=== PATIENT | female | born 1945 | race African-American/Black ===

== ENCOUNTER 2020-05-27 09:02 | Day surgery (SDC) | payer MEDICARE, MEDICAID ==
[~2020-05-27] VITALS: Ht 165.1 cm; Wt 69.7 kg
[2020-05-27] VITALS (11 sets, daily range): BP systolic 109–137; BP diastolic 44–68; PULSE 60–98; TEMP 98.3–98.5
[2020-05-27 09:43] LABS: MEAN CELL VOLUME 84 fl (80.0-100.0); MEAN CORPUSCULAR HGB CONC 30 g/dl (33.0-37.0); MEAN PLATELET VOLUME 9.6 fl (7.4-10.4); PLATELET COUNT 455 K/mm3 (130-400); RED BLOOD COUNT 3.71 M/mm3 (4.10-5.30); REDCELL DISTRIBUTION WIDTH-CV 16.2 % (11.5-14.5)
[2020-05-27 09:45] LABS: HEMATOCRIT 31.3 % (37.0-47.0); HEMOGLOBIN 9.4 g/dl (12.5-16.0); MEAN CORPUSCULAR HEMOGLOBIN 25 pg (27.0-31.0)
[2020-05-27 09:50] LABS: PROTHROMBIN TIME 11.2 SECONDS (9.7-12.8)
[2020-05-27 09:51] LABS: CALCIUM 9.4 mg/dL (8.4-10.2); CREATININE, serum 1.49 (0.52-1.25); POTASSIUM 3.7 mmol/L (3.4-5.0)
[2020-05-27] MEDS ORDERED: NORVASC 5MG5 MG/TAB PO (09:53)
[2020-05-27] MEDS ORDERED: ARIMIDEX1 MG PO (09:54)
[2020-05-27] MEDS ORDERED: ASPIRIN 81M81 MG/TA2 PO (09:54)
[2020-05-27] MEDS ORDERED: GLUCOTROL 5M5 MG/TAB PO (09:55)
[2020-05-27] MEDS ORDERED: LASIX 20MG TABL20 MG PO (09:55)
[2020-05-27] MEDS ORDERED: CENTRUM SILVER1 CTB PO (09:55)
[2020-05-27] MEDS ORDERED: LIPITOR20 MG PO (09:56)
[2020-05-27] MEDS ORDERED: GLUCOPHAGE1000 MG PO (09:56)
[2020-05-27] MEDS ORDERED: PLAVIX 75MG TAB75 MG PO (09:57)
[2020-05-27] MEDS ORDERED: ULTRAM 50MG TAB50 MG PO (09:57)
[2020-05-27] MEDS ORDERED: VICTOZA6 MG/ML SQ (09:57)
[2020-05-27] MEDS ORDERED: PRINZIDE 12.5 M1 TAB PO (09:58)
[2020-05-27] MEDS ORDERED: LANOXIN 0.120.125 MG PO (09:58)
[2020-05-27] MEDS ORDERED: NATURAL MAGNES200 MG PO (09:59)
[2020-05-27] MEDS ORDERED: REGLAN 5MG T5 MG/TAB PO (10:00)
[2020-05-27] MEDS ORDERED: GAS RELIEF 8080 MG PO (10:00)
[2020-05-27] MEDS ORDERED: LOPRESSOR 225 MG/TAB PO (10:01)
[2020-05-27] MEDS ORDERED: ROXICODONE 55 MG/TAB PO (10:01)
--- NOTE | 2020-05-27 11:20 | NUR ---
SEE MERGE DOCUMENTATION FOR MEDICATION ADMINISTRATION TIMES AND INTRA/POST PROCEDURE SEDATION ASSESSMENTS. PLAN FOR LEFT FEMORAL APPROACH PER PT REQUEST; AGREES WITH THIS.
[2020-05-27] MEDS ORDERED: LIPITOR 40MG TA40 MG PO (12:14)
--- NOTE | 2020-05-27 12:42 | NUR ---
Report received from Can RN in [employer]. Pt resting in bed with dressing in place with 40 ccs of air. Area is soft with no hematoma. PT has required multiple reminders already to keep head flat. Phone given to patient to update family. Call light in reach. Ice chips per request. Ordered lunch per request. Will continue to monitor.
--- NOTE | 2020-05-27 16:48 | NUR ---
Slowly removed air to dressing on L groin, pt tolerated well, no signs of bleeding or hematoma. Assissted pt up to bathroom, and changed dressing to gauze and tegaderm. Denies needs, denies pain, denies any CMS comprimise. Will do discharge shortly.
--- NOTE | 2020-05-27 17:23 | NUR ---
Discharge teaching completed at this time. Pt received f/u appointment, medication changes, and reviewed restrictions with bathing, and lifting from cath site. INT dc'd, tip intact. Pt left wtih all belongings, escorted out by myself via w/c, son to drive home, criteria met.
== END 2020-05-27 17:25 | disposition home or self-care (01) ==
LOC: COL.CAR
PROVIDERS: Internal Medicine Cardiovascular Disease
DX: I25.118 Atherosclerotic heart disease of native coronary artery with other forms of angina pectoris (principal); I10 Essential (primary) hypertension; I73.9 Peripheral vascular disease, unspecified; E78.5 Hyperlipidemia, unspecified; F17.210 Nicotine dependence, cigarettes, uncomplicated; E66.9 Obesity, unspecified; E11.51 Type 2 diabetes mellitus with diabetic peripheral angiopathy without gangrene; E03.9 Hypothyroidism, unspecified; K21.9 Gastro-esophageal reflux disease without esophagitis; F32.9 Major depressive disorder, single episode, unspecified; M79.604 Pain in right leg; Z79.82 Long term (current) use of aspirin; Z79.899 Other long term (current) drug therapy; Z79.02 Long term (current) use of antithrombotics/antiplatelets; Z86.79 Personal history of other diseases of the circulatory system; Z85.831 Personal history of malignant neoplasm of soft tissue; Z95.820 Peripheral vascular angioplasty status with implants and grafts; Z68.25 Body mass index [BMI] 25.0-25.9, adult; Z88.1 Allergy status to other antibiotic agents; Z20.828 Contact with and (suspected) exposure to other viral communicable diseases; Z79.84 Long term (current) use of oral hypoglycemic drugs
CPT/HCPCS: J1644; J2250; J3010; J7050; Q9967

== ENCOUNTER → 2020-06-01 | Outpatient (CLI) | payer MEDICARE, MEDICAID ==
[~2020-06-01] MED LIST: ARIMIDEX1 MG PO; ASPIRIN 81M81 MG/TA2 PO; CENTRUM SILVER1 CTB PO; GAS RELIEF 8080 MG PO; GLUCOPHAGE1000 MG PO; GLUCOTROL 5M5 MG/TAB PO; LANOXIN 0.120.125 MG PO; LASIX 20MG TABL20 MG PO; LIPITOR 40MG TA40 MG PO; LIPITOR20 MG PO; LOPRESSOR 225 MG/TAB PO; NATURAL MAGNES200 MG PO; NORVASC 5MG5 MG/TAB PO; PLAVIX 75MG TAB75 MG PO; PRINZIDE 12.5 M1 TAB PO; REGLAN 5MG T5 MG/TAB PO; ROXICODONE 55 MG/TAB PO; ULTRAM 50MG TAB50 MG PO; VICTOZA6 MG/ML SQ
[2020-06-01 10:21] LABS: HEMATOCRIT 27.3 % (37.0-47.0); HEMOGLOBIN 8.1 g/dl (12.5-16.0); MEAN CELL VOLUME 85 fl (80.0-100.0); MEAN CORPUSCULAR HEMOGLOBIN 25 pg (27.0-31.0); MEAN CORPUSCULAR HGB CONC 30 g/dl (33.0-37.0); MEAN PLATELET VOLUME 10.2 fl (7.4-10.4); PLATELET COUNT 419 K/mm3 (130-400); RED BLOOD COUNT 3.23 M/mm3 (4.10-5.30); REDCELL DISTRIBUTION WIDTH-CV 16.3 % (11.5-14.5)
[2020-06-01 10:27] LABS: CALCIUM 9.2 mg/dL (8.4-10.2); CREATININE, serum 1.41 (0.52-1.25)
== END ==
LOC: COL.LAB 09:51
PROVIDERS: Internal Medicine Interventional Cardiology
DX: I25.10 Atherosclerotic heart disease of native coronary artery without angina pectoris (principal); I25.83 Coronary atherosclerosis due to lipid rich plaque; Z20.828 Contact with and (suspected) exposure to other viral communicable diseases